=== PATIENT | male | born 1990 | race Caucasian/White ===

== ENCOUNTER 2017-06-12 20:24 | Emergency (ER) | payer SELFPAY ==
[2017-06-12 20:39] VITALS: BP 145/85
== END 2017-06-12 22:46 | disposition left against medical advice (07) ==
LOC: EDSEX → ED 20:24
DX: R21 Rash and other nonspecific skin eruption (principal); Z53.21 Procedure and treatment not carried out due to patient leaving prior to being seen by health care provider